=== PATIENT | female | born 1955 | race Caucasian/White ===

== ENCOUNTER 2017-05-23 08:58 | Outpatient (CLI) | payer BC | END 2017-05-23 08:59 | disposition home or self-care (01) | LOC: BICMAMMO 08:58 | PROVIDERS: ATTEND Obstetrics & Gynecology | DX: Z12.31 Encounter for screening mammogram for malignant neoplasm of breast (principal); R92.1 Mammographic calcification found on diagnostic imaging of breast | CPT/HCPCS: 77063; 77067; G0202 ==

== ENCOUNTER 2023-07-05 08:45 | Outpatient (CLI) | payer MEDICARE | END 2023-07-05 08:46 | disposition home or self-care (01) | LOC: BICMAMMO 08:45 | PROVIDERS: ATTEND Family Medicine | DX: N63.20 Unspecified lump in the left breast, unspecified quadrant (principal) | CPT/HCPCS: 76642; 77066; G0279 ==